=== PATIENT | male | born 1970 | race American Indian/Alaskan Native ===

== ENCOUNTER 2019-12-19 12:53 | Emergency (ER) | payer MEDICARE ==
[2019-12-19] MEDS ORDERED: MORPHINE 4 MG/1 ML INJ IM ONE (15:20)
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
--- NOTE | 2019-12-19 16:56 | XRay Report ---
LUMBAR SPINE 3 VIEWS INDICATION / CLINICAL INFORMATION: back pain. COMPARISON: None available. FINDINGS: Marked narrowing of the L4-5 disc space with postsurgical change at this level. No other significant skeletal abnormality. Alignment is normal. Signer Name: Babatunde Stevens MD FACR Signed: 12/19/2019 4:52 PM Workstation Name: [id number]
[2019-12-19 18:43] VITALS: BP 143/101
== END 2019-12-19 17:37 | disposition home or self-care (01) ==
LOC: ED 12:53
DX: M54.5 Low back pain (principal); M62.838 Other muscle spasm; I10 Essential (primary) hypertension; Z98.890 Other specified postprocedural states; Z79.899 Other long term (current) drug therapy
CPT/HCPCS: 72100; 96372; 99283; J2270